=== PATIENT | male | born 1980 | race African-American/Black ===

== ENCOUNTER 2022-06-12 14:43 | Emergency (ER) | payer OTHER ==
[~2022-06-12] VITALS: Ht 193 cm; Wt 135.7 kg
[2022-06-12] MEDS ORDERED: ASPIRIN 81 MG CHEW TAB PO ONE (15:00)
[2022-06-12] MEDS ORDERED: ASPIRIN 81 MG CHEW TAB ONE (15:23)
[2022-06-12] MEDS ORDERED: FLONASE ALLERG9.9 ML INH (15:35)
[2022-06-12] MEDS ORDERED: CLARITIN10 M4 PO (15:35)
[2022-06-12] MEDS ORDERED: BENZONATATE200 MG PO (15:35)
== END 2022-06-12 15:45 | disposition home or self-care (01) ==
LOC: FSED 14:48
DX: R06.02 Shortness of breath (principal); R07.89 Other chest pain; J06.9 Acute upper respiratory infection, unspecified; R05.9 Cough, unspecified; I10 Essential (primary) hypertension
CPT/HCPCS: 71046; 80053; 82553; 83880; 84484; 85025; 93005; 99284

== ENCOUNTER 2022-06-28 16:05 | Emergency (ER) | payer OTHER ==
[~2022-06-28] VITALS: Ht 193 cm; Wt 135.6 kg
[~2022-06-28 16:05] MED LIST: BENZONATATE200 MG PO; CLARITIN10 M4 PO; FLONASE ALLERG9.9 ML INH
[2022-06-28] MEDS ORDERED: ALBUTEROL/IPRATROPIUM 3 ML NEB NEB STA (16:11)
[2022-06-28] MEDS ORDERED: PREDNISONE 20 MG TAB PO SCH (16:11)
[2022-06-28] MEDS ORDERED: ALBUTEROL/IPRATROPIUM 3 ML NEB ONE (16:25)
[2022-06-28] MEDS ORDERED: PREDNISONE 20 MG TAB ONE (16:42)
[2022-06-28] MEDS ORDERED: IOPAMIDOL 370 MG/ML 100 ML INFUS..BTL INJ ONE (17:19)
[2022-06-28] MEDS ORDERED: AZITHROMYCIN250 MG PO (18:19)
[2022-06-28] MEDS ORDERED: PREDNISONE20 MG PO (18:19)
[2022-06-28] MEDS ORDERED: VENTOLIN HFA18 GM INH (18:19)
== END 2022-06-28 18:33 | disposition home or self-care (01) ==
LOC: FSED 16:10
DX: R06.00 Dyspnea, unspecified (principal); R05.9 Cough, unspecified; I10 Essential (primary) hypertension; F17.210 Nicotine dependence, cigarettes, uncomplicated
CPT/HCPCS: 71046; 71260; 93005; 99284; J7512; Q9967